=== PATIENT | female | born 1985 | race Caucasian/White ===

== ENCOUNTER 2019-04-14 06:14 | Inpatient (IN) | payer OTHER ==
[2019-04-14 07:18] VITALS: BMI 35.2
[2019-04-14] MEDS ORDERED: Docusate 100 MG CAP PO PRN (09:17)
[2019-04-14] MEDS ORDERED: Acetaminophen 500 MG TAB PO PRN (09:17)
[2019-04-14] MEDS ORDERED: Ibuprofen 800 MG TAB PO PRN (09:17)
[2019-04-14] MEDS ORDERED: Promethazine HCl 25 MG/ML VIAL IM PRN (09:17)
[2019-04-14] MEDS ORDERED: Butorphanol Tartrate 1 MG/ML VIAL SLOW IVP PRN (09:17)
[2019-04-14] MEDS ORDERED: NS / Oxytocin 40 units/1000ml 1,000 ML IV PRN (09:17)
[2019-04-14] MEDS ORDERED: Lidocaine 1% (PF) 30 ML VIAL SC PRN (09:17)
[2019-04-14] MEDS ORDERED: Ondansetron PF 4 MG/2 ML Vial IVP PRN ×2 (09:17→18:26)
[2019-04-14] MEDS ORDERED: hydrALAZINE 20 MG/ML VIAL SLOW IVP PRN ×2 (09:17→18:26)
--- NOTE | 2019-04-14 09:24 | PDOC.EVN ---
Event Note - Event Note Event Note: [facility] Interim H&P Time: [address] Patient was being observed for 2 hours after first check by prior invertebrate paleontologist team found gher to be 3cm. recheck is now 4cm...full term, 40 weeks. I will do direct admission to Dr Mae. Orders placed as courtsey. I have notified Dr mae by secure tiger text. CC: CTX EGA: 40 weeks HPI: 35 weeks at full term with SOOL, no VB, no LOF, good FM. here for recheck after 2 hours of observation. Denies other issues. Allergies: none OB HX: SVDs Physical: Vitals reviewed, wnl NAD CX:4cm Monitor: Cat I, reviewed. Irregular CTX on toco A/P: Full term, multip, labor. Admit. Pain meds Check GBS status Pitocin if needed for augmentation
[2019-04-14] MEDS: Lactated Ringer's 1,000 ML IV SCH ×2 (09:30→21:20)
--- NOTE | 2019-04-14 09:33 | PDOC.LDHP ---
Labor and Delivery H&P HPI: Patient of Dr Perez Here for SOOL 33 yo at 40 weeks with EDC 04/13/19, denies issues. See other interim note. GBS pos...no LOF, no VB Review of Systems: complete ROS completed and as per HPI Current gestational age (weeks): 40 (1 day) Due date: 04/13/19 Dating criteria: last menstrual period Grav: 5 Para: 3 OB History Details: SAB x1 SVDs x 3 Current complications: none Abnormal US findings: No Current medications: pre-pam vitamins Previous surgical history: none, other (wisdom teeth) Allergies/Adverse Reactions: Allergies Allergy/AdvReac Type Severity Reaction Status Date / Time No Known Allergies Allergy Verified 06/07/14 22:40 - Physical Exam Vital signs reviewed and normal: yes (114/72 68) General: NAD Heart: RRR Lungs: CTAB Abdomen: gravid Extremeties: no edema FHT: category 1 - Vaginal Exam cm dilated: 4 (BOWI) Effacement: 75% Station: -1 - Assessment L&D Assessment: term patient in labor (Full term, GBS pos) - Plan Plan: admit to L&D, GBS antibiotic prophylaxis, informed consent obtained, anesthesia consult for pain management
[2019-04-14] MEDS ORDERED: Penicillin G Potassium 5 MILL.UNITS VIAL ONE (09:39)
[2019-04-14] MEDS ORDERED: Penicillin G Potassium 5 MILL.UNITS in Sodium Chloride 0.9% 100 ML IVPB SCH (09:45)
[2019-04-14 09:55] LABS: Mean Corpuscular HGB CONC 35.5 g/dL (32.0-36.0); Mean Corpuscular Hemoglobin 32.9 pg (27.0-31.0); Mean Corpuscular Volume 92.8 fL (78.0-98.0); Mean Platelet Volume 7.9 fL (7.4-10.4); Platelet Count 260 thou/uL (130-400); Red Blood Cell (RBC) Count 4.25 mill/uL (4.20-5.40); White Blood Cell (WBC) Count 9.6 thou/uL (4.8-10.8)
[2019-04-14 10:41] LABS: Syphilis Antibody Nonreactive (Nonreactive); Syphilis Antibody Index 0.03 S/CO (<1.00 Non-Reactive)
[2019-04-14 10:42] LABS: HBSAg Index 0.13 S/CO (0-0.99); Hep B Surf Ag Non-Reactive S/CO (NonReactive)
[2019-04-14] MEDS ORDERED: NS w/ Oxytocin 10 units 500 ML ONE (13:36)
[2019-04-14] MEDS: Penicillin G 2.5 MILL.units 2.5 MILL.UNITS in Premix Bag 1 BAG IVPB SCH ×3 (14:01→21:20)
[2019-04-14] MEDS ORDERED: NS w/ Oxytocin 10 units 500 ML IV SCH (14:30)
--- NOTE | 2019-04-14 14:30 | PDOC.LDPN ---
Labor & Delivery Progress Note - Subjective Subjective: painful contractions - Objective Vital signs reviewed and normal: yes General: NAD, breathing through contractions Uterine fundus: non tender SVE: at 14:10 by Aram Dilation: 5 Effacement: 50% Station: -1 FHT: category 1, variability present Orange contractions every: q2-5 min AROM: clear fluid - Assessment (1) Term Code(s): Z34.90 - ENCNTR FOR SUPRVSN OF NORMAL , UNSP, UNSP TRIMESTER Current Visit: Yes Status: Acute Plan: labor augmentation, pitocin for augmentation, other (GBS positive; on 2nd dose of Pen G)
[2019-04-14] MEDS ORDERED: Lanolin Ointment 7 GM TUBE TOP PRN (18:26)
[2019-04-14] MEDS ORDERED: NS / Oxytocin 40 units/1000ml 1,000 ML IV SCH (18:26)
[2019-04-14] MEDS ORDERED: diphenhydrAMINE 25 MG CAP PO PRN (18:26)
[2019-04-14] MEDS ORDERED: Milk Of Magnesia 30 ML UDCUP PO PRN (18:26)
[2019-04-14] MEDS ORDERED: Preparation H Ointment 28 GM TUBE PR PRN (18:26)
[2019-04-14] MEDS ORDERED: Bisacodyl 10 MG SUPP PR PRN (18:26)
[2019-04-14] MEDS ORDERED: NS / Oxytocin 40 units/1000ml 1,000 ML ONE (18:35)
[2019-04-14] MEDS ORDERED: Ferrous Sulfate 325 MG TAB PO SCH (18:45)
[2019-04-14] MEDS: Ibuprofen 800 MG TAB PO SCH (19:37)
[2019-04-14] MEDS: Docusate Calcium (SURFAK) 240 MG CAP PO SCH (21:25)
[2019-04-15] MEDS: Ibuprofen 800 MG TAB PO SCH ×3 (00:52→14:07)
[2019-04-15] MEDS ORDERED: Sodium Chloride 0.9% 10 ML ONE (02:57)
--- NOTE | 2019-04-15 07:42 | PDOC.PP ---
Post Progress Note Post Day #: 1 PO intake tolerated: yes Flatus: yes Ambulation: yes Vital Signs (12 hours) Temp Pulse Resp BP Pulse Ox 04/15/19 05:13 97.6 F 71 20 104/61 04/15/19 00:36 98.1 F 81 20 104/58 L 04/14/19 21:30 98.3 F 91 20 108/59 L 99 04/14/19 19:45 98.3 F 75 20 121/66 99 Weight Weight 180 lb Result Diagrams: 04/14/19 09:40 Additional Labs: Post Labs Blood Type O POSITIVE 04/14/19 09:40 Hep Bs Antigen Non-Reactive S/CO (NonReactive) 04/14/19 09:40 - Assessment/Plan S/p fullterm . Doing well. Proboable discharge today if baby released. F/u in 6 weeks.
--- NOTE | 2019-04-15 07:50 | HP ---
REGULAR PHYSICIAN: Hayde Perez MD. EVALUATING PHYSICIAN: Albert Rivera MD CHIEF COMPLAINT: Contractions at home. HISTORY OF PRESENT ILLNESS: Ms. Crespo is a 33-year-old , G5, P3, AB1 with an estimated date of confinement of 04/13/2019, who presents complaining of contractions since midnight that have been every 5 to 10 minutes. She denies ruptured membranes or vaginal bleeding. Her care has been with Dr. Perez, and she states that she is set to be induced some time later this week. PAST OBSTETRICAL HISTORY: Includes 3 vaginal deliveries at term as well as 1 early miscarriage, not requiring D and C. PAST MEDICAL HISTORY: None. PAST SURGICAL HISTORY: None. CURRENT MEDICATIONS: vitamins. ALLERGIES: NO KNOWN ALLERGIES. SOCIAL HISTORY: Denies tobacco, alcohol, or drug use. FAMILY HISTORY: Unremarkable. REVIEW OF SYSTEMS: Denies nausea, vomiting, fever, chills, ruptured membranes, or vaginal bleeding. PHYSICAL EXAMINATION: VITAL SIGNS: Stable and she is afebrile in triage. GENERAL: She is pleasant and in no distress. ABDOMEN: Soft, nontender, and gravid. PELVIC: Exam by labor nurse shows the cervix to be 3 cm dilated, 60% effaced with the vertex at the -2 position. heart rate tracing is stable. Contractions are seen every 3 to 5 minutes. ASSESSMENT: 1. 40-week intrauterine . 2. Rule out active labor. PLAN: The patient will be allowed to walk for the next hour to hour and a half and be rechecked to see progression of labor. Job ID: [id number]
[2019-04-15] MEDS: Docusate Calcium (SURFAK) 240 MG CAP PO SCH (08:26)
[2019-04-15] MEDS: Ferrous Sulfate 325 MG TAB PO SCH ×2 (08:55→14:14)
[2019-04-15] MEDS ORDERED: Prenatal Vitamin 1 TAB PO SCH (09:00)
[2019-04-15] MEDS ORDERED: Adacel (T-DAP) 0.5 ML SYRINGE IM ONE (09:00)
[2019-04-15 16:15] VITALS: BP 113/62; TEMP 98.2
== END 2019-04-15 19:00 | disposition home or self-care (01) | DRG 807 ==
LOC: L&D/OP 06:14 → L&D 10:41 → 3SW 18:56
PROVIDERS: ADMIT Obstetrics & Gynecology; ATTEND Obstetrics & Gynecology
PROC: 10E0XZZ Delivery of Products of Conception, External Approach (ICD-10-PCS; principal; 2019-04-14)
PROC: 10907ZC Drainage of Amniotic Fluid, Therapeutic from Products of Conception, Via Natural or Artificial Opening (ICD-10-PCS; 2019-04-14)
DX: O99.824 Streptococcus B carrier state complicating childbirth (principal); Z37.0 Single live birth; Z3A.40 40 weeks gestation of pregnancy
CPT/HCPCS: 36415; 85027; 86780; 86850; 86900; 86901; 87340; 99285; J0595; J2001; J2540; J2590

== ENCOUNTER 2019-06-04 12:54 | Outpatient (CLI) | payer OTHER ==
--- NOTE | 2019-06-04 14:42 | MMO ---
Bilateral MAMMO Bilat Diag [facility]. CLINICAL HISTORY: Patient is 34 years old and is seen for diagnostic exam. The patient has no family history of breast cancer. The patient has no personal history of cancer. VIEWS: The views performed were: bilateral craniocaudal with tomosynthesis; bilateral mediolateral oblique with tomosynthesis; and bilateral mediolateral with tomosynthesis. FILMS COMPARED: The present examination has been compared to a prior imaging study performed at [facility] on 06/04/2019. This study has been interpreted with the assistance of computer-aided detection. MAMMOGRAM FINDINGS: The breasts are heterogeneously dense, which could obscure a lesion on mammography. There is an oval mass with circumscribed margins seen in the inner region of the left breast. This corresponds to the palpable area. Probably benign findings are seen sonographically. In the right breast, there are no suspicious masses, calcifications or areas of architectural distortion. IMPRESSION: MASS IN THE LEFT BREAST IS PROBABLY BENIGN. FOLLOW-UP ULTRASOUND IN 6 MONTHS IS RECOMMENDED. THE RESULTS OF THIS EXAM WERE SENT TO THE PATIENT. ACR BI-RADS Category 3 - Probably benign finding - short interval follow-up suggested. [facility] will notify the patient of the need for additional imaging services. MAMMOGRAPHY NOTE: 1. A negative mammogram report should not delay a biopsy if a dominant of clinically suspicious mass is present. 2. Approximately 10% to 15% of breast cancers are not detected by mammography. 3. Adenosis and dense breasts may obscure an underlying neoplasm. Reported by: GARY KAMARA MD Electonically Signed: [id number]
--- NOTE | 2019-06-04 15:33 | ULT ---
LIMITED LEFT BREAST ULTRASOUND 06/04/19 PROVIDED CLINICAL HISTORY: Left breast palpable abnormality. FINDINGS: Limited sonographic interrogation is performed of the left breast in the region of palpable concern a nd mammographic abnormality. There is a 2.8 cm circumscribed area of altered echogenicity at the 8 o' clock position of the left breast. This demonstrates predominant and echogenicity with enhanced throu gh transmission. There is mild complexity at the margins of this process without evidence for associa jose flow. This probably reflects a complicated cyst. IMPRESSION: BIRADS 3: Probably Benign Findings. Six month follow-up left breast ultrasound is recommended. The patient was instructed that if this wa s felt to be enlarging in the interim to present at that time rather than waiting six months. Result s and recommendations were discussed with the patient and questions answered. POS: OFF
== END 2019-06-04 12:55 | disposition home or self-care (01) ==
LOC: BICMAMMO 12:54
PROVIDERS: ATTEND Obstetrics & Gynecology
DX: N63.20 Unspecified lump in the left breast, unspecified quadrant (principal)
CPT/HCPCS: 77066; G0279

== ENCOUNTER 2019-12-18 15:03 | Outpatient (CLI) | payer OTHER ==
--- NOTE | 2019-12-18 17:23 | ULT ---
LEFT BREAST ULTRASOUND: 12/18/19 HISTORY: Left breast mass follow-up. FINDINGS: comparison is made with the exam of 06/04/19. The complex mass at the 8 o'clock position of the left breast 3 cm from the nipple is significantly s maller currently measuring 1 x 0.6 x 1 cm (previously 2.8 cm). IMPRESSION: BIRADS 3: Probably Benign Finding Initial Short-Interval Follow-Up Suggested Initial short-term follow up (usually 6-month) examination. Six month follow-up left breast ultrasou nd is recommended.
== END 2019-12-18 15:04 | disposition home or self-care (01) ==
LOC: BICULT 15:03
PROVIDERS: ATTEND Obstetrics & Gynecology
DX: R92.8 Other abnormal and inconclusive findings on diagnostic imaging of breast (principal)

== ENCOUNTER 2020-08-07 09:48 | Outpatient (CLI) | payer OTHER ==
--- NOTE | 2020-08-07 10:47 | ULT ---
US Breast Limited Lt: 08/07/2020 10:36 AM CLINICAL INDICATION: Mass at the 8:00 position of the left breast. The patient initially felt the mas s while breast-feeding in May 2019 COMPARISON: Ultrasounds 12/18/2019, 06/04/2019 TECHNIQUE: Multiplanar grayscale and color Doppler images were obtained of the breast. FINDINGS: There is a well-circumscribed solid mass at the 8:00 position of the left breast approximately 3 cm f rom the nipple. This measures 1.0 cm in greatest dimension and is stable compared to the most recent exam. This has significantly decreased in size compared to the exam from 06/04/2019 where this was a mixed solid and cystic mass. The anechoic cystic portion of the mass is no longer present. IMPRESSION: BI-RADS Category 3-probably benign findings. The mass in the left breast may represent a complex cyst or an incompletely resorbed galactocele. A follow-up ultrasound in 6 months is recommended to ensure continued stability.
--- NOTE | 2020-08-07 10:48 | MMO ---
Bilateral MAMMO Bilat Diag [facility]. CLINICAL HISTORY: Patient is 35 years old and is seen for diagnostic exam. The patient has no family history of breast cancer. The patient has no personal history of cancer. VIEWS: The views performed were: bilateral craniocaudal with tomosynthesis; bilateral mediolateral oblique with tomosynthesis; and bilateral mediolateral with tomosynthesis. FILMS COMPARED: The present examination has been compared to prior imaging studies performed at [facility] on 06/04/2019, 12/18/2019 and 08/07/2020. This study has been interpreted with the assistance of computer-aided detection. MAMMOGRAM FINDINGS: The breasts are heterogeneously dense, which could obscure a lesion on mammography. There is a stable oval mass measuring 11 millimeters with circumscribed margins seen in the left breast. In the right breast, there are no suspicious masses, calcifications or areas of architectural distortion. IMPRESSION: STABLE MASS IN THE LEFT BREAST IS PROBABLY BENIGN. FOLLOW-UP IN 6 MONTHS IS RECOMMENDED. THE RESULTS OF THIS EXAM WERE SENT TO THE PATIENT. ACR BI-RADS Category 3 - Probably benign finding - short interval follow-up suggested. [facility] will notify the patient of the need for additional imaging services. MAMMOGRAPHY NOTE: 1. A negative mammogram report should not delay a biopsy if a dominant of clinically suspicious mass is present. 2. Approximately 10% to 15% of breast cancers are not detected by mammography. 3. Adenosis and dense breasts may obscure an underlying neoplasm. Reported by: PASQUALE CAMEJO MD Electonically Signed: [id number]
== END 2020-08-07 09:49 | disposition home or self-care (01) ==
LOC: BICMAMMO 09:48
PROVIDERS: ATTEND Obstetrics & Gynecology
DX: N63.24 Unspecified lump in the left breast, lower inner quadrant (principal)
CPT/HCPCS: 77066; G0279

== ENCOUNTER 2021-04-19 09:55 | Outpatient (CLI) | payer MEDICAID | END 2021-04-19 09:56 | disposition home or self-care (01) | LOC: BICULT 09:55 | PROVIDERS: ATTEND Obstetrics & Gynecology | DX: N63.20 Unspecified lump in the left breast, unspecified quadrant (principal) ==

== ENCOUNTER 2023-03-07 09:49 | Outpatient (CLI) | payer MEDICAID | END 2023-03-07 09:50 | disposition home or self-care (01) | LOC: BICMAMMO 09:49 | PROVIDERS: ATTEND Nurse Practitioner Family | DX: N63.13 Unspecified lump in the right breast, lower outer quadrant (principal); N63.24 Unspecified lump in the left breast, lower inner quadrant | CPT/HCPCS: 77066; G0279 ==

== ENCOUNTER → 2023-03-14 | Day surgery (SDC) | payer MEDICAID | LOC: BICULT 12:35 | PROVIDERS: ATTEND Nurse Practitioner Family | PROC: 0H9V3ZX Drainage of Bilateral Breast, Percutaneous Approach, Diagnostic (ICD-10-PCS; principal; 2023-03-14) | DX: D24.2 Benign neoplasm of left breast (principal); D24.1 Benign neoplasm of right breast | CPT/HCPCS: 19083; 88305 ==

== ENCOUNTER 2024-03-12 08:06 | Outpatient (CLI) | payer OTHER | END 2024-03-12 08:07 | disposition home or self-care (01) | LOC: BICMAMMO 08:06 | PROVIDERS: ATTEND Nurse Practitioner Family | DX: N63.11 Unspecified lump in the right breast, upper outer quadrant (principal); D24.1 Benign neoplasm of right breast | CPT/HCPCS: 77066; G0279 ==